=== PATIENT | male | born 1980 | race Caucasian/White ===

== ENCOUNTER 2019-06-04 16:02 | Emergency (ER) | payer SELFPAY ==
[~2019-06-04] VITALS: Ht 177.8 cm; Wt 118.1 kg
[2019-06-04] MEDS ORDERED: ONDANSETRON 4 MG/2 ML (SDV) Z0FRAN IVP STA (16:09)
[2019-06-04] MEDS ORDERED: hydrALAZINE (APESOLINE) 20 MG/ML VIAL IV STA (16:11)
[2019-06-04] MEDS ORDERED: PANTOPRAZOLE 40 MG (PROTONIX) VIAL IV STA (16:11)
[2019-06-04] MEDS ORDERED: ONDANSETRON 4 MG/2 ML (SDV) Z0FRAN ONE (16:11)
--- NOTE | 2019-06-04 16:16 | ED General ---
General Stated Complaint: CHEST PAIN Source of Information: Patient History of Present Illness Date Seen by Provider: Jun 04, 2019 Time Seen by Provider: 16:02 Initial Comments 38-year-old male presenting with complaints of epigastric pain going up into his chest. He describes it as a hot lead that is sitting in his stomach and chest. He states that he's had this off and on since Sunday. He denies any alcohol use currently. He denies having any pains like this in the past. Allergies and Home Medications Allergies Coded Allergies: No Known Drug Allergies (Unverified , 06/04/19) Home Medications Metoclopramide HCl 10 Mg Tablet, 10 MG PO Q6H PRN for NAUSEA/VOMITING Prescribed by: JUSTIN FERRERA on 06/04/191941 Ondansetron 4 Mg Tab.rapdis, 4 MG PO Q6H PRN for NAUSEA/VOMITING Prescribed by: JUSTIN FERRERA on 06/04/191913 Pantoprazole Sodium 40 Mg Tablet.dr, 40 MG PO DAILY Prescribed by: JUSTIN FERRERA on 06/04/191913 Patient Home Medication List Home Medication List Reviewed: Yes Review of Systems Review of Systems Constitutional: No chills, No fever EENTM: no symptoms reported Respiratory: no symptoms reported Cardiovascular: chest pain (epigastric pain that radiates up into lower mid chest) Gastrointestinal: abdominal pain (epigastric abdominal pain), nausea, vomiting Genitourinary: no symptoms reported Musculoskeletal: no symptoms reported Skin: no symptoms reported Past Rxcqewe-Upwgjt-Bkaosb Hx Past Med/Social Hx: Reviewed Nursing Past Med/Soc Hx Patient Social History Recent Foreign Travel: No Contact w/Someone Who Travel: No Past Medical History Surgeries: Yes Appendectomy, Orthopedic (Right shoulder) Respiratory: No Cardiac: Yes Hypertension Neurological: No Genitourinary: No Gastrointestinal: No Musculoskeletal: No Endocrine: No HEENT: No Cancer: No Psychosocial: Yes Depression Physical Exam Vital Signs Vital Signs - First Documented 06/04/19 16:03 Temp 36.1 Pulse 53 Resp 18 B/P (MAP) 210/112 (144) Pulse Ox 99 O2 Delivery Room Air Capillary Refill : Height, Weight, BMI Height: '" Weight: lbs. oz. kg; BMI Method: General Appearance: WD/WN, Anxious, Mild Distress HEENT: PERRL/EOMI, Pharynx Normal Neck: Full Range of Motion, Normal Inspection, Non Tender, Supple; No Carotid Bruit Respiratory: Chest Non Tender, Lungs Clear, Normal Breath Sounds Cardiovascular: Regular Rate, Rhythm, Normal Peripheral Pulses Gastrointestinal: Normal Bowel Sounds, No Pulsatile Mass, Soft, Tenderness (epigastric area) Extremity: Normal Capillary Refill, Normal Inspection, Normal Range of Motion, Non Tender, No Pedal Edema Neurologic/Psychiatric: Alert, Oriented x3, No Motor/Sensory Deficits Skin: Normal Color, Warm/Dry Progress/Results/Core Measures Suspected Sepsis SIRS Temperature: Pulse: Respiratory Rate: Laboratory Tests 06/04/19 16:10: White Blood Count 7.8 Blood Pressure / Mean: Laboratory Tests 06/04/19 16:10: Creatinine 1.36H, INR Comment 1.0, Platelet Count 220, Total Bilirubin 0.4 Results/Orders Lab Results Laboratory Tests Test 06/04/19 16:10 06/04/19 16:35 06/04/19 18:05 Range/Units White Blood Count 7.8 4.3-11.0 10^3/uL Red Blood Count 5.57 4.35-5.85 10^6/uL Hemoglobin 16.3 13.3-17.7 G/DL Hematocrit 48 40-54 % Mean Corpuscular Volume 85 80-99 FL Mean Corpuscular Hemoglobin 29 25-34 PG Mean Corpuscular Hemoglobin Concent 34 32-36 G/DL Red Cell Distribution Width 11.9 10.0-14.5 % Platelet Count 220 130-400 10^3/uL Mean Platelet Volume 10.2 7.4-10.4 FL Neutrophils (%) (Auto) 46 42-75 % Lymphocytes (%) (Auto) 42 12-44 % Monocytes (%) (Auto) 9 0-12 % Eosinophils (%) (Auto) 2 0-10 % Basophils (%) (Auto) 1 0-10 % Neutrophils # (Auto) 3.6 1.8-7.8 X 10^3 Lymphocytes # (Auto) 3.2 1.0-4.0 X 10^3 Monocytes # (Auto) 0.7 0.0-1.0 X 10^3 Eosinophils # (Auto) 0.1 0.0-0.3 10^3/uL Basophils # (Auto) 0.1 0.0-0.1 10^3/uL Prothrombin Time 13.4 12.2-14.7 SEC INR Comment 1.0 0.8-1.4 Activated Partial Thromboplast Time 27 24-35 SEC Sodium Level 142 135-145 MMOL/L Potassium Level 3.9 3.6-5.0 MMOL/L Chloride Level 103 98-107 MMOL/L Carbon Dioxide Level 25 21-32 MMOL/L Anion Gap 14 5-14 MMOL/L Blood Urea Nitrogen 17 7-18 MG/DL Creatinine 1.36 H 0.60-1.30 MG/DL Estimat Glomerular Filtration Rate 59 BUN/Creatinine Ratio 13 Glucose Level 107 H 70-105 MG/DL Calcium Level 9.5 8.5-10.1 MG/DL Corrected Calcium 8.5-10.1 MG/DL Total Bilirubin 0.4 0.1-1.0 MG/DL Aspartate Amino Transf (AST/SGOT) 33 5-34 U/L Alanine Aminotransferase (ALT/SGPT) 78 H 0-55 U/L Alkaline Phosphatase 62 40-136 U/L Troponin I < 0.30 < 0.30 <0.30 NG/ML Pro-B-Type Natriuretic Peptide < 5.0 <75.0 PG/ML Total Protein 7.4 6.4-8.2 GM/DL Albumin 4.6 H 3.2-4.5 GM/DL Lipase 30 8-78 U/L Urine Color YELLOW Urine Clarity CLEAR Urine pH 6.0 5-9 Urine Specific [place] 1.025 H 1.016-1.022 Urine Protein NEGATIVE NEGATIVE Urine Glucose (UA) NEGATIVE NEGATIVE Urine Ketones NEGATIVE NEGATIVE Urine Nitrite NEGATIVE NEGATIVE Urine Bilirubin NEGATIVE NEGATIVE Urine Urobilinogen 0.2 NORMAL MG/DL Urine Leukocyte Esterase NEGATIVE NEGATIVE Urine RBC (Auto) NEGATIVE NEGATIVE Urine RBC NONE /HPF Urine WBC NONE /HPF Urine Squamous Epithelial Cells 0-2 /HPF Urine Crystals NONE /LPF Urine Bacteria NONE /HPF Urine Casts NONE /LPF Urine Mucus NEGATIVE /LPF Urine Culture Indicated NO My Orders Orders - JUSTIN FERRERA MD Comprehensive Metabolic Panel (06/04/19 16:09) Lipase (06/04/19 16:09) Ua Culture If Indicated (06/04/19 16:09) Ed Iv/Invasive Line Start (06/04/19 16:09) Cbc With Automated Diff (06/04/19 16:09) Ondansetron Injection (Zofran Injectio (06/04/19 16:09) Troponin I Fs (06/04/19 16:10) Probnp Fs (06/04/19 16:10) Protime With Inr (06/04/19 16:10) Partial Thromboplastin Time (06/04/19 16:10) Ekg Tracing (06/04/19 16:11) Continuous Ekg Monitoring (06/04/19 16:11) Chest 1 View Ap/Pa Only (06/04/19 16:11) Pantoprazole Injection (Protonix Injecti (06/04/19 16:11) Hydralazine Injection (Apresoline Inject (06/04/19 16:11) Ondansetron Injection (Zofran Injectio (06/04/19 16:11) Fentanyl Injection (Sublimaze Injection (06/04/19 16:21) Ns Iv 1000 Ml (Sodium Chloride 0.9%) (06/04/19 16:52) Ekg Tracing (06/04/19 17:26) Troponin I Fs (06/04/19 18:00) Vital Signs/I&O 06/04/19 06/04/19 06/04/19 06/04/19 16:03 16:35 16:53 19:48 Temp 36.1 36.1 36.8 Pulse 53 65 Resp 18 14 B/P (MAP) 210/112 (144) 139/81 Pulse Ox 99 96 O2 Delivery Room Air Room Air Simple Mask Capillary Refill : Progress Note #1: Progress Note Check labs and ECG with CXR. Try Zofran for his n/v. Fentanyl and Protonix for his epigastric burning pain radiating into his chest. Progress Note #2: Progress Note improved symptoms after treatment. no further n/v. labs do not show any acute abnormality on CBC, Chemistry or cardiac enzymes. Complaining to draw a second set of enzymes at 2 hours. Repeat electrocardiogram since his pain is improved. Progress Note #3: Progress Note The repeat troponin is still negative. His repeat electrocardiogram continues to show normal sinus rhythm without ST elevation or ischemic changes. Counseled to follow-up through the clinic for continued symptoms as he may need an EGD. Will prescribe an acid reducing medication in the meantime. ECG Initial ECG Impression Date: Jun 04, 2019 Initial ECG Impression Time: 16:08 Initial ECG Rate: 52 Initial ECG Rhythm: Normal Sinus Initial ECG Comparisson: No Previous ECG Available Comment Sinus rhythm with a heart rate of 52 bpm. [place] interval 137 ms. QT interval 455 ms with a QT corrected interval 424 ms. There is artifact on the tracing. There is no prior tracing for comparison. No acute ST elevation. EKG : EKG Time: 17:27 Rate: 63 Rhythm: Normal Sinus ECG Comparisson: Unchanged ECG Impression: Normal Comment Normal sinus rhythm with a heart rate is 63 bpm. AZ interval 137 ms. QT interval 431 ms and a QT corrected interval 442 ms. There is no acute ST elevation. This appears similar to the prior tracing from 1608 today Diagnostic Imaging Diagonstic Imaging: Xray Plain Films/CT/US/NM/MRI: chest Comments NAME: FELIX MENON REC#: [id number] PT STATUS: REG ER : 1980 PHYSICIAN: JUSTIN FERRERA MD ADMIT DATE: 06/04/19/ER FS Signed Date of Exam:06/04/19 CHEST 1 VIEW AP/PA ONLY INDICATION: Chest pain x4 days with vomiting. TECHNIQUE: Single view chest 4:05 PM. CORRELATION STUDY: 10/22/2007 FINDINGS: Given the limited depth of inspiration, the heart size, mediastinal configuration and pulmonary vascularity are within normal limits. The lungs are clear with no consolidating infiltrate. Some crowding at the lung bases likely owing to hypoventilation. There is no significant effusion or pneumothorax. IMPRESSION: 1. Negative for acute abnormality of the chest. Dictated by: Dictated on workstation # [id number] Dict: 06/04/19 1632 Trans: 06/04/19 1641 DO [id number] Interpreted by: HEIDI ADAMS DO Electronically signed by: HEIDI ADAMS DO 06/04/19 1641 Departure Impression Primary Impression: Epigastric abdominal pain Additional Impressions: Nausea & vomiting Qualified Codes: R11.14 - Bilious vomiting Hypertension Qualified Codes: I10 - Essential (primary) hypertension Disposition: 01 HOME, SELF-CARE Condition: Stable Departure-Patient Inst. Decision time for Depature: 19:00 Referrals: NO,LOCAL PHYSICIAN (PCP) Primary Care Physician [facility] Patient Instructions: Chest Pain That Is Not Caused by the Heart (DC), Gastritis (DC), Ulcer and Gastritis Diet Add. Discharge Instructions: Establish care and follow up with a primary provider for further evaluation. Follow a low fat bland diet. Take the medicine for acid reduction and nausea medicine as needed. Check with clinic and they may want you to be taking a blood pressure medicine as well or set you up to have a scope or EGD done to look for ulcers or a reason for your pain and vomiting. Scripts Metoclopramide HCl (Metoclopramide HCl) 10 Mg Tablet 10 MG PO Q6H PRN for NAUSEA/VOMITING for 5 Days, #20 TAB 0 Refills Prov: JUSTIN FERRERA MD 06/04/19 Ondansetron (Ondansetron Odt) 4 Mg Tab.rapdis 4 MG PO Q6H PRN for NAUSEA/VOMITING for 2 Days, #8 TAB 0 Refills Prov: JUSTIN FERRERA MD 06/04/19 Pantoprazole Sodium (Pantoprazole Sodium) 40 Mg Tablet.dr 40 MG PO DAILY for 30 Days, #30 TAB 0 Refills Prov: JUSTIN FERRERA MD 06/04/19 JUSTIN FERRERA MD Jun 04, 2019 16:16
[2019-06-04] MEDS ORDERED: fentaNYL INJECTION 100 MCG/2 ML AMP IVP STA (16:21)
[2019-06-04 16:24] LABS: HEMATOCRIT 48 % (40-54); HEMOGLOBIN 16.3 G/DL (13.3-17.7); MEAN CORPUSCULAR HEMOGLOBIN 29 PG (25-34); WHITE BLOOD COUNT 7.8 10^3/uL (4.3-11.0)
[2019-06-04 16:25] LABS: BASOPHILS # (AUTO) 0.1 10^3/uL (0.0-0.1); BASOPHILS % (AUTO) 1 % (0-10); EOSINOPHILS # (AUTO) 0.1 10^3/uL (0.0-0.3); EOSINOPHILS % (AUTO) 2 % (0-10); LYMPHOCYTES # (AUTO) 3.2 X 10^3 (1.0-4.0); LYMPHOCYTES % (AUTO) 42 % (12-44); MEAN CORPUSCULAR HGB CONC 34 G/DL (32-36); MEAN CORPUSCULAR VOLUME 85 FL (80-99); MEAN PLATELET VOLUME 10.2 FL (7.4-10.4); MONOCYTES # (AUTO) 0.7 X 10^3 (0.0-1.0); MONOCYTES % (AUTO) 9 % (0-12); NEUTROPHILS # (AUTO) 3.6 X 10^3 (1.8-7.8); NEUTROPHILS % (AUTO) 46 % (42-75); PLATELET COUNT 220 10^3/uL (130-400); RED CELL DISTRIBUTION WIDTH 11.9 % (10.0-14.5)
--- NOTE | 2019-06-04 16:33 | Diagnostic Imaging Report ---
INDICATION: Chest pain x4 days with vomiting. TECHNIQUE: Single view chest 4:05 PM. CORRELATION STUDY: 10/22/2007 FINDINGS: Given the limited depth of inspiration, the heart size, mediastinal configuration and pulmonary vascularity are within normal limits. The lungs are clear with no consolidating infiltrate. Some crowding at the lung bases likely owing to hypoventilation. There is no significant effusion or pneumothorax. IMPRESSION: 1. Negative for acute abnormality of the chest. Dictated by: Dictated on workstation # [id number]
[2019-06-04 16:39] LABS: PROTHROMBIN TIME PATIENT 13.4 SEC (12.2-14.7)
[2019-06-04 16:43] LABS: BILIRUBIN,URINE NEGATIVE (NEGATIVE); CLARITY,URINE CLEAR; COLOR,URINE YELLOW; GLUCOSE, URINE (UA) NEGATIVE (NEGATIVE); KETONES,URINE NEGATIVE (NEGATIVE); LEUKOCYTE ESTERASE ,URINE NEGATIVE (NEGATIVE); NITRITE,URINE NEGATIVE (NEGATIVE); PROTEIN,URINE NEGATIVE (NEGATIVE); SQUAMOUS EPITHELIAL CELL,UR 0-2 /HPF
[2019-06-04] MEDS ORDERED: NS IV 1000 ML 1,000 ML IV STA (16:52)
[2019-06-04 17:03] LABS: ALANINE AMINOTRANSFERASE 78 U/L (0-55); ALKALINE PHOSPHATASE 62 U/L (40-136); BILIRUBIN,TOTAL 0.4 MG/DL (0.1-1.0); BUN/CREATININE RATIO 13; CALCIUM 9.5 MG/DL (8.5-10.1); CARBON DIOXIDE 25 MMOL/L (21-32); CHLORIDE 103 MMOL/L (98-107); CREATININE SERUM 1.36 MG/DL (0.60-1.30); GFR ESTIMATED 59; GLUCOSE 107 MG/DL (70-105); POTASSIUM 3.9 MMOL/L (3.6-5.0); SODIUM 142 MMOL/L (135-145)
[2019-06-04 17:04] LABS: ALBUMIN 4.6 GM/DL (3.2-4.5); LIPASE 30 U/L (8-78); TOTAL PROTEIN 7.4 GM/DL (6.4-8.2)
[2019-06-04] MEDS ORDERED: PANT40TA3 PO (19:14)
[2019-06-04] MEDS ORDERED: ONDA4TAB11 PO (19:14)
[2019-06-04] MEDS ORDERED: METO10TA3 PO (19:42)
[2019-06-04 19:48] VITALS: BP 139/81
== END 2019-06-04 19:48 | disposition home or self-care (01) ==
LOC: EDUNIT# 16:02 → ER FS 16:05
DX: R10.13 Epigastric pain (principal); I10 Essential (primary) hypertension; R11.2 Nausea with vomiting, unspecified; F32.9 Major depressive disorder, single episode, unspecified; Z90.49 Acquired absence of other specified parts of digestive tract
CPT/HCPCS: 36415; 71045; 80053; 81000; 83690; 83880; 84484; 85025; 85610; 85730; 93005